=== PATIENT | male | born 1965 | race Caucasian/White ===

== ENCOUNTER 2016-12-06 14:35 | Emergency (ER) | payer BC ==
[~2016-12-06] VITALS: Wt 83.0 kg
[~2016-12-06 14:35] MED LIST: CYCL-319 PO; HYDR-1666; NAPR-260 PO
[2016-12-06] MEDS ORDERED: EXCED PO (15:44)
[2016-12-06] MEDS ORDERED: MECL12.574 PO (15:45)
--- NOTE | 2016-12-06 15:48 | ERD ---
ER Documentation Chief Complaint Date/Time DATE: 12/06/16 TIME: 15:45 Chief Complaint HEADACHE, THROAT PAIN, DIZZINESS, ONSET 6 DAYS HPI Patient is a 51-year-old male with no past medical history who presents to the ED with headache and dizziness on and off for the last 2 weeks. He states that after the of his father 1 year ago he developed these symptoms. He also states that occasionally he gets left-sided numbness and tingling which has been going on for the last 2 weeks on and off. He denies neck pain or neck stiffness. He states that he has had these headaches in the past and denies stating that this is the worst headache of his life. Denies blurry vision. Denies nausea or vomiting. Denies fever or chills. Denies recent URIs. Denies leg pain or swelling. Denies cough or shortness of breath or difficulty breathing. States that he is interested in starting an anti-depression medication and for stress. He states that he has gone to his primary care but has not received any medication for this. Denies suicidal or homicidal ideations. ROS All systems reviewed and are negative except as per history of present illness. Medications Home Meds Active Scripts Meclizine Hcl* (Antivert*) 12.5 Mg Tab, 12.5 MG PO Q6H Y for DIZZINESS, #20 TAB Prov:SHITAL GIORDANO PA-C 12/06/16 Acetaminophen/Aspirin/Caffeine* (Excedrin*) 1 Tab Tab, 1 TAB PO BID for 14 Days , TAB Prov:SHITAL GIORDANO PA-C 12/06/16 Cyclobenzaprine Hcl* (Cyclobenzaprine Hcl*) 10 Mg Tablet, 10 MG PO TID, #10 TAB Prov:HUEY SMITH DO 09/22/15 Naproxen* (Naprosyn*) 500 Mg Tablet, 500 MG PO BID Y for PAIN AND/OR INFLAMMATION, #14 TAB Prov:HUEY SMITH DO 09/22/15 Reported Medications Hydrocodone Bit/Acetaminophen (Vicodin 5/500 Tablet) 1 Tab Tablet, 3X A DAY PRN 03/07/11 Allergies Allergies: Coded Allergies: No Known Allergy (Verified Allergy, Mild, 03/07/11) PMhx/Soc History of Surgery: No Anesthesia Reaction: No Hx Neurological Disorder: No Hx Respiratory Disorders: No Hx Cardiac Disorders: No Hx Psychiatric Problems: No Hx Miscellaneous Medical Probl: Yes (Anxiety) Hx Alcohol Use: Yes (Q WEEKEND ) Hx Substance Use: No Hx Tobacco Use: No FmHx Family History: No coronary disease, No diabetes, No other Physical Exam Vitals Vital Signs Date Time Temp Pulse Resp B/P Pulse Ox O2 Delivery O2 Flow Rate FiO2 12/06/16 14:40 98.0 96 17 130/87 98 Physical Exam GENERAL: Well-developed, well-nourished male. Appears in no acute distress. HEAD: Normocephalic, atraumatic. EYES: Pupils are equally reactive bilaterally. EOMs grossly intact. No conjunctival erythema. ENT: Moist mucous membranes. No uvula deviation. No kissing tonsils. No exudates. NECK: Supple. No lymphadenopathy or thyromegaly. No meningismus. negative kernig. negative brudinski. LUNG: Clear to auscultation bilaterally. No rhonchi, wheezing, rales or coarse breath sounds. HEART: Regular rate and rhythm. No murmurs, rubs or gallops. Extremities: Equal pulses bilaterally. No peripheral clubbing, cyanosis or edema. No unilateral leg swelling. NEUROLOGIC: Alert and oriented. Moving all four extremities. 5/5 strength in all extremities. Normal speech. Steady gait. No ataxia. Negative Romberg test. Cranial nerves II through XII intact. SKIN: Normal color. Warm and dry. No rashes or lesions. Capillary refill < 2 seconds Procedures/MDM ER COURSE: I kept the patient and/or family informed of laboratory and diagnostic imaging results throughout the emergency room course. MEDICAL DECISION MAKING: This is a 51-year-old man who presents with anxiety, headache and dizziness. Vital signs were reviewed. Patient is afebrile. Patient is not hypoxic. Patient is nontoxic or ill-appearing. Patient has a mild headache. Patient's symptoms have been going on for the last 2 weeks as well as multiple months prior after the of his father. I discussed the risk versus benefits of a CT scan. Patient did not want a CT scan at this time and I do not think a CT scan is warranted. Patient's cranial nerve exam was within normal limits. Low suspicion for intracranial hemorrhage, meningitis, intracranial mass, concussion , temporal arteritis, stroke, elevated intracranial pressure, seizure. DISCHARGE: At this time, patient is stable for discharge and outpatient management with no new complaints during the ER course. Patient was sent home with Excedrin and meclizine and to follow-up with primary care provider for further evaluation and possible appointment with therapist. Patient will be discharged home with instructions to recheck for new or worsening symptoms such as fever, nausea, weakness, LOC and to follow up with primary care in the next 1-2 days. Patient was advised to return to the ER for any new or worsening symptoms. Plan was discussed and patient and/or family understands and agrees. Home instructions were given. Departure Diagnosis: Primary Impression: Headache Headache type: unspecified Headache chronicity pattern: acute headache Intractability: not intractable Qualified Code: R51 - Acute nonintractable headache, unspecified headache type Condition: Stable Patient Instructions: Self-Care for Headaches, [place] to Managing Stress, Stress Relief: Relaxation Additional Instructions: Llame al doctor MAANA y lavelle renetta SREEKANTH PARA DENTRO DE 1-2 UMAÑA.Dgale a la secretaria que nosotros le instruimos hacer esta sreekanth.Avise o llame si contreras condicin se empeora antes de la sreekanth. Regresa aqui si peor o no mejor. SHITAL GIORDANO PA-C Dec 06, 2016 15:48
== END 2016-12-06 15:48 | disposition home or self-care (01) ==
LOC: E/R 14:35
DX: R51 Headache (principal)
CPT/HCPCS: 99284